=== PATIENT | female | born 1955 | race Caucasian/White ===

== ENCOUNTER 2017-03-30 19:49 | Emergency (ER) | payer OTHER ==
[~2017-03-30] VITALS: Ht 162.6 cm; Wt 68.2 kg
[2017-03-30] MEDS ORDERED: PREMARIN1.25 M1 PO (19:59)
[2017-03-30 20:21] LABS: EOS # 0.1 (0.04-0.40); EOS % 2.3 % (1.0-5.0); HEMATOCRIT 38.7 % (37.0-47.0); LYMPH# 1.6 (1.50-4.00); MEAN CELL VOLUME 96 fl (78-100); MEAN CORPUSCULAR HEMOGLOBIN 32 pg (27-31); MEAN CORPUSCULAR HGB CONC 34 g/dL (33-37); MEAN PLATELET VOLUME 8.8 fl (7.4-10.4); MONO # 0.5 (0.20-0.80); NEU # 3.4 (1.40-6.50); PLATELET COUNT 267 K/mm3 (130-400); RED BLOOD COUNT 4.03 M/mm3 (4.10-5.30); RED CELL DISTRIBUTION WIDTH 11.9 % (11.5-14.5); WHITE BLOOD COUNT 5.7 K/mm3 (4.8-10.8)
[2017-03-30 20:35] LABS: ALBUMIN 3.7 g/dL (3.5-5.0); BUN/CREATININE RATIO 31.1 (6.0-26.0); CALCIUM 9.5 mg/dL (8.4-10.2); POTASSIUM 4.2 mmol/L (3.6-5.0); TOTAL BILIRUBIN 0.3 mg/dL (0.2-1.3); TOTAL PROTEIN 7.2 g/dL (6.3-8.2)
[2017-03-30] MEDS ORDERED: OMEPRAZOLE D/R20 MG PO (21:30)
[2017-03-30 21:35] VITALS: BP 148/84
== END 2017-03-30 21:35 | disposition home or self-care (01) ==
LOC: ED 19:49
PROVIDERS: Family Medicine
DX: R07.89 Other chest pain (principal)

== ENCOUNTER 2020-03-10 16:00 | Outpatient (RCR) | payer BC ==
[~2020-03-10 16:00] MED LIST: OMEPRAZOLE D/R20 MG PO; PREMARIN1.25 M1 PO
== END 2020-03-10 16:30 | disposition still patient (30) ==
LOC: OT 16:00
DX: M19.042 Primary osteoarthritis, left hand (principal)

== ENCOUNTER 2024-03-12 08:00 | Outpatient (RCR) | payer MEDICARE, BC | END 2024-04-10 | LOC: PT | DX: M25.511 Pain in right shoulder (principal) ==